=== PATIENT | male | born 1995 | race African-American/Black ===

== ENCOUNTER 2018-08-31 22:05 | Emergency (ER) | payer OTHER ==
[~2018-08-31] VITALS: Ht 177.8 cm; Wt 72.6 kg
[~2018-08-31 22:05] MED LIST: ACETAMINOPHEN-1 EAC1 PO; FLEXERIL PO; IBUPROFEN 800800 MG PO; NAPROSYN500 MG PO; ZOFRAN4 MG PO
[2018-08-31 23:48] VITALS: BP 122/66
== END 2018-08-31 23:50 | disposition home or self-care (01) ==
LOC: ER 22:05
DX: S09.8XXA Other specified injuries of head, initial encounter (principal); R04.0 Epistaxis; Z98.890 Other specified postprocedural states; X50.9XXA Other and unspecified overexertion or strenuous movements or postures, initial encounter; Y93.67 Activity, basketball; Y92.89 Other specified places as the place of occurrence of the external cause; Y99.8 Other external cause status